=== PATIENT | female | born 1940 | race Caucasian/White ===

== ENCOUNTER 2021-07-31 11:22 | Inpatient (IN) | payer MEDICARE, OTHER ==
[~2021-07-31] VITALS: Ht 162.5 cm; Wt 41.3 kg
[~2021-07-31 11:22] MED LIST: ARTIFICIAL TEAR1514 OP; COLESTIPOL HYDRO1 GM PO; Coumadin5 MG PO; DIVALPROEX SOD250 MG PO; EXTENDED PHENY200 MG PO; GABAPENTIN100 M2 PO; LEVETIRACETAM500 MG PO; LEVOTHYROXINE100 MC1 PO; LISINOPRIL5 MG PO; MIRTAZAPINE15 M2 PO; OLANZAPINE10 MG PO; PROAIR HFA8.5 GM INH; VITAMIN C500 M8 PO; ZAFIRLUKAST20 M2 PO; ZOFRAN4 MG PO
[2021-07-31] MEDS ORDERED: PROTONIX IV40 MG IV (12:19)
[2021-07-31] MEDS ORDERED: DULCOLAX5 M1 PO (12:20)
[2021-07-31] MEDS ORDERED: MOM30 M1 PO (12:21)
[2021-07-31 12:35] VITALS: BP 92/48
[2021-07-31 20:00] VITALS: BP 100/50
[2021-08-01 06:25] LABS: ALKALINE PHOSPHATASE 98 U/L (45-117); BUN 14 mg/dl (7-24); CHLORIDE 98 mmol/L (98-107); CHOLESTEROL 183 mg/dL (<200); CREATININE 0.46 mg/dL (0.55-1.02); LDL CHOLESTEROL 75 mg/dL (9-159); POTASSIUM 5.2 mmol/L (3.5-5.1); SGOT/AST 22 IU/L (3-35); SGPT/ALT 26 U/L (12-78); SODIUM 133 mmol/L (136-145); TOTAL PROTEIN 6.9 gm/dL (6.4-8.2); TRIGLYCERIDES 77 mg/dl (<150)
[2021-08-01 06:35] LABS: PHENYTOIN (DILANTIN) 0.7 ug/ml (10-20)
[2021-08-01 07:39] LABS: VITAMIN D, 25-HYDROXY 32.5 ng/mL (30-100)
[2021-08-01 07:44] VITALS: BP 103/43
[2021-08-01 08:25] LABS: BASO % 0.3 % (0.0-1.0); EOS # 0.2 10*3/uL (0.0-0.4); EOS % 1.5 % (1.0-4.0); HEMATOCRIT 33.7 % (37.0-47.0); LYMPH # 2.3 10*3/uL (1.3-4.4); LYMPH % 21.1 % (27.0-41.0); MEAN CELL VOLUME 69.8 fl (81.0-99.0); MEAN CORPUSCULAR HGB 19.5 pg (27.0-31.0); MEAN CORPUSCULAR HGB CONC 27.9 g/dl (33.0-37.0); MEAN PLATELET VOLUME 8.3 fl (9.6-12.3); MONO # 0.9 10*3/uL (0.1-1.0); MONO % 8.6 % (3.0-9.0); NEUT # 7.5 10*3/uL (2.3-7.9); NEUT % 68.1 % (47.0-73.0); PLATELET COUNT AUTOMATED 304 10*3/uL (130-400); RED BLOOD COUNT 4.83 10*6/uL (4.10-5.10)
[2021-08-01 08:33] LABS: INTERNATIONAL NORM RATIO 1.6 (2.0-3.5)
[2021-08-01 20:00] VITALS: BP 114/37
[2021-08-02 06:52] LABS: BASO % 0.3 % (0.0-1.0); EOS # 0.2 10*3/uL (0.0-0.4); HEMATOCRIT 29.1 % (37.0-47.0); LYMPH # 1.8 10*3/uL (1.3-4.4); LYMPH % 18.5 % (27.0-41.0); MEAN CELL VOLUME 71.9 fl (81.0-99.0); MEAN CORPUSCULAR HGB CONC 27.8 g/dl (33.0-37.0); MEAN PLATELET VOLUME 8.4 fl (9.6-12.3); MONO # 0.8 10*3/uL (0.1-1.0); MONO % 8.1 % (3.0-9.0); NEUT # 6.7 10*3/uL (2.3-7.9); NEUT % 70.8 % (47.0-73.0); PLATELET COUNT AUTOMATED 259 10*3/uL (130-400); RED BLOOD COUNT 4.05 10*6/uL (4.10-5.10); RED CELL DISTRI WIDTH 23.2 % (0-14.5); WHITE BLOOD COUNT 9.5 10*3/uL (4.8-10.8)
[2021-08-02 07:01] LABS: INTERNATIONAL NORM RATIO 1.9 (2.0-3.5)
[2021-08-02 07:11] LABS: BUN 14 mg/dl (7-24); CHLORIDE 100 mmol/L (98-107); CREATININE 0.35 mg/dL (0.55-1.02); POTASSIUM 4.9 mmol/L (3.5-5.1); SODIUM 135 mmol/L (136-145)
[2021-08-02 08:21] VITALS: BP 115/55
[2021-08-02 20:00] VITALS: BP 120/59
[2021-08-03 06:00] LABS: BASO % 0.3 % (0.0-1.0); EOS # 0.2 10*3/uL (0.0-0.4); EOS % 2.2 % (1.0-4.0); HEMATOCRIT 31.5 % (37.0-47.0); LYMPH # 1.7 10*3/uL (1.3-4.4); LYMPH % 16.3 % (27.0-41.0); MEAN CELL VOLUME 71.3 fl (81.0-99.0); MEAN CORPUSCULAR HGB 19.7 pg (27.0-31.0); MEAN CORPUSCULAR HGB CONC 27.6 g/dl (33.0-37.0); MEAN PLATELET VOLUME 8.7 fl (9.6-12.3); MONO # 0.8 10*3/uL (0.1-1.0); NEUT # 7.6 10*3/uL (2.3-7.9); NEUT % 72.8 % (47.0-73.0); PLATELET COUNT AUTOMATED 291 10*3/uL (130-400); RED BLOOD COUNT 4.42 10*6/uL (4.10-5.10); RED CELL DISTRI WIDTH 23.3 % (0-14.5); WHITE BLOOD COUNT 10.4 10*3/uL (4.8-10.8)
[2021-08-03 06:10] LABS: BUN 12 mg/dl (7-24); CHLORIDE 99 mmol/L (98-107); CREATININE 0.51 mg/dL (0.55-1.02); POTASSIUM 5.1 mmol/L (3.5-5.1); SODIUM 135 mmol/L (136-145)
[2021-08-03 06:17] LABS: INTERNATIONAL NORM RATIO 1.7 (2.0-3.5)
[2021-08-03 07:53] VITALS: BP 111/54
[2021-08-03 09:10] LABS: ABG BASE EXCESS 8.3 mmol/L (-2.0-2.0); ARTERIAL BLOOD GAS PH 7.424 (7.35-7.45); ARTERIAL BLOOD GAS PO2 91.5 (80-90)
[2021-08-03 16:17] LABS: BASO % 0.2 % (0.0-1.0); EOS # 0.1 10*3/uL (0.0-0.4); EOS % 0.6 % (1.0-4.0); HEMATOCRIT 29.7 % (37.0-47.0); LYMPH # 1.7 10*3/uL (1.3-4.4); LYMPH % 13.5 % (27.0-41.0); MEAN CELL VOLUME 70.7 fl (81.0-99.0); MEAN CORPUSCULAR HGB 20.5 pg (27.0-31.0); MEAN PLATELET VOLUME 8.6 fl (9.6-12.3); MONO # 0.9 10*3/uL (0.1-1.0); MONO % 7.4 % (3.0-9.0); NEUT # 9.8 10*3/uL (2.3-7.9); NEUT % 77.8 % (47.0-73.0); PLATELET COUNT AUTOMATED 257 10*3/uL (130-400); RED CELL DISTRI WIDTH 23.5 % (0-14.5); WHITE BLOOD COUNT 12.6 10*3/uL (4.8-10.8)
[2021-08-03 16:43] LABS: BUN 17 mg/dl (7-24); CHLORIDE 99 mmol/L (98-107); CREATININE 0.47 mg/dL (0.55-1.02); POTASSIUM 4.8 mmol/L (3.5-5.1); SODIUM 134 mmol/L (136-145)
[2021-08-03 20:00] VITALS: BP 123/60
[2021-08-04 08:00] VITALS: BP 120/56
[2021-08-04 09:50] LABS: BILIRUBIN Negative (Negative); BLOOD Negative (Negative); CLARITY Clear (Clear); COLOR Yellow (Yellow); GLUCOSE Negative (Negative); KETONE Negative (Negative); LEUKO ESTERASE 3+ (Negative); NITRITE Negative (Negative); SPECIFIC GRAVITY 1.015 (1.001-1.030); UROBILINOGEN 0.2 E.U./dl (0.0-1.0)
[2021-08-04 10:08] LABS: WBC 31-40 wbc/hpf (0-5)
[2021-08-04 10:09] LABS: BACTERIA 1+
[2021-08-04 20:00] VITALS: BP 112/54
[2021-08-05 07:44] VITALS: BP 112/52
[2021-08-05 20:00] VITALS: BP 100/66
[2021-08-06 06:24] LABS: INTERNATIONAL NORM RATIO 1.3 (2.0-3.5)
[2021-08-06 08:00] VITALS: BP 128/61
[2021-08-06 20:00] VITALS: BP 130/78; BP 164/80
[2021-08-07 06:07] LABS: ALKALINE PHOSPHATASE 75 U/L (45-117); BUN 14 mg/dl (7-24); CHLORIDE 102 mmol/L (98-107); CREATININE 0.43 mg/dL (0.55-1.02); POTASSIUM 5.1 mmol/L (3.5-5.1); SGOT/AST 18 IU/L (3-35); SGPT/ALT 18 U/L (12-78); SODIUM 137 mmol/L (136-145); TOTAL PROTEIN 6.5 gm/dL (6.4-8.2)
[2021-08-07 06:13] LABS: BASO % 0.3 % (0.0-1.0); EOS # 0.2 10*3/uL (0.0-0.4); EOS % 2.2 % (1.0-4.0); HEMATOCRIT 29.9 % (37.0-47.0); LYMPH # 1.6 10*3/uL (1.3-4.4); LYMPH % 17.3 % (27.0-41.0); MEAN CELL VOLUME 71.7 fl (81.0-99.0); MEAN CORPUSCULAR HGB 20.1 pg (27.0-31.0); MEAN CORPUSCULAR HGB CONC 28.1 g/dl (33.0-37.0); MEAN PLATELET VOLUME 8.9 fl (9.6-12.3); MONO # 0.7 10*3/uL (0.1-1.0); MONO % 7.3 % (3.0-9.0); NEUT # 6.6 10*3/uL (2.3-7.9); NEUT % 72.6 % (47.0-73.0); PLATELET COUNT AUTOMATED 291 10*3/uL (130-400); RED BLOOD COUNT 4.17 10*6/uL (4.10-5.10); RED CELL DISTRI WIDTH 25.1 % (0-14.5); WHITE BLOOD COUNT 9.1 10*3/uL (4.8-10.8)
[2021-08-07 07:33] VITALS: BP 130/52
[2021-08-07] MEDS ORDERED: SLOW RELEASE I159 MG PO (12:17)
[2021-08-07] MEDS ORDERED: VITAMIN D350 MC2 PO (12:17)
[2021-08-07] MEDS ORDERED: ROZEREM8 MG PO (12:20)
[2021-08-07] MEDS ORDERED: ESKALITH,LITHI300 MG PO (12:21)
[2021-08-07] MEDS ORDERED: INVEGA6 MG PO (12:21)
== END 2021-08-07 12:54 | disposition short-term general hospital (02) | DRG 885 ==
LOC: 3N 11:22
PROVIDERS: Counselor Professional; Family Medicine; Hospitalist; Internal Medicine; Student in an Organized Health Care Education/Training Program; ADMIT Psychiatry & Neurology Psychiatry; ATTEND Psychiatry & Neurology Psychiatry
DX: F25.0 Schizoaffective disorder, bipolar type (principal); E43 Unspecified severe protein-calorie malnutrition; J96.11 Chronic respiratory failure with hypoxia; E87.1 Hypo-osmolality and hyponatremia; Z68.1 Body mass index [BMI] 19.9 or less, adult; G31.84 Mild cognitive impairment of uncertain or unknown etiology; G62.9 Polyneuropathy, unspecified; E87.5 Hyperkalemia; J44.9 Chronic obstructive pulmonary disease, unspecified; I10 Essential (primary) hypertension; E03.9 Hypothyroidism, unspecified; R56.9 Unspecified convulsions; Z88.2 Allergy status to sulfonamides; Z88.8 Allergy status to other drugs, medicaments and biological substances; Z88.1 Allergy status to other antibiotic agents; Z88.5 Allergy status to narcotic agent; Z91.041 Radiographic dye allergy status

== ENCOUNTER 2021-08-07 13:01 | Inpatient (IN) | payer MEDICARE, OTHER ==
[~2021-08-07] VITALS: Ht 157.5 cm; Wt 43.7 kg
[~2021-08-07 13:01] MED LIST changes: +DULCOLAX5 M1 PO; +ESKALITH,LITHI300 MG PO; +INVEGA6 MG PO; +MOM30 M1 PO; +PROTONIX IV40 MG IV; +ROZEREM8 MG PO; +SLOW RELEASE I159 MG PO; +VITAMIN D350 MC2 PO
[2021-08-07 13:04] VITALS: BP 116/60
[2021-08-07 13:21] VITALS: BP 119/50
[2021-08-07 16:01] VITALS: BP 122/54
[2021-08-07 20:00] VITALS: BP 121/50
[2021-08-08] VITALS: BP 118/54
[2021-08-08 06:07] LABS: INTERNATIONAL NORM RATIO 1.3 (2.0-3.5)
[2021-08-08 06:19] LABS: BASO # 0.1 10*3/uL (0.0-0.1); BASO % 0.7 % (0.0-1.0); EOS # 0.3 10*3/uL (0.0-0.4); EOS % 3.5 % (1.0-4.0); HEMATOCRIT 30.4 % (37.0-47.0); LYMPH # 2.2 10*3/uL (1.3-4.4); LYMPH % 26.9 % (27.0-41.0); MEAN CELL VOLUME 71.2 fl (81.0-99.0); MEAN CORPUSCULAR HGB 20.1 pg (27.0-31.0); MEAN CORPUSCULAR HGB CONC 28.3 g/dl (33.0-37.0); MEAN PLATELET VOLUME 9.2 fl (9.6-12.3); MONO # 0.5 10*3/uL (0.1-1.0); MONO % 5.5 % (3.0-9.0); NEUT # 5.2 10*3/uL (2.3-7.9); NEUT % 63.2 % (47.0-73.0); PLATELET COUNT AUTOMATED 248 10*3/uL (130-400); RED BLOOD COUNT 4.27 10*6/uL (4.10-5.10); RED CELL DISTRI WIDTH 25.9 % (0-14.5); WHITE BLOOD COUNT 8.2 10*3/uL (4.8-10.8)
[2021-08-08 06:23] LABS: ALKALINE PHOSPHATASE 77 U/L (45-117); BUN 16 mg/dl (7-24); CHLORIDE 102 mmol/L (98-107); CREATININE 0.41 mg/dL (0.55-1.02); POTASSIUM 4.6 mmol/L (3.5-5.1); SGOT/AST 11 IU/L (3-35); SGPT/ALT 18 U/L (12-78); SODIUM 136 mmol/L (136-145); TOTAL PROTEIN 6.8 gm/dL (6.4-8.2)
[2021-08-08 08:00] VITALS: BP 140/56
[2021-08-08 12:00] VITALS: BP 117/54
[2021-08-08 16:00] VITALS: BP 142/46
[2021-08-08 19:26] LABS: BILIRUBIN Negative (Negative); BLOOD 1+ (Negative); CLARITY Turbid (Clear); COLOR Yellow (Yellow); GLUCOSE Negative (Negative); KETONE Negative (Negative); LEUKO ESTERASE 3+ (Negative); NITRITE Negative (Negative); UROBILINOGEN 0.2 E.U./dl (0.0-1.0)
[2021-08-08 19:46] LABS: WBC TNTC wbc/hpf (0-5)
[2021-08-08 20:00] VITALS: BP 99/50
[2021-08-09] VITALS: BP 105/52
[2021-08-09 06:43] LABS: INTERNATIONAL NORM RATIO 1.1 (2.0-3.5)
[2021-08-09 08:00] VITALS: BP 114/42
[2021-08-09 12:00] VITALS: BP 142/46
[2021-08-09 15:42] VITALS: BP 140/43
[2021-08-09 20:00] VITALS: BP 120/53
[2021-08-10] VITALS: BP 141/55
[2021-08-10 05:32] LABS: BUN 14 mg/dl (7-24); CHLORIDE 101 mmol/L (98-107); CREATININE 0.42 mg/dL (0.55-1.02); POTASSIUM 4.6 mmol/L (3.5-5.1); SODIUM 137 mmol/L (136-145)
[2021-08-10 06:29] LABS: BASO % 0.5 % (0.0-1.0); EOS # 0.2 10*3/uL (0.0-0.4); EOS % 2.4 % (1.0-4.0); HEMATOCRIT 31.1 % (37.0-47.0); LYMPH # 2.5 10*3/uL (1.3-4.4); MEAN CELL VOLUME 70.4 fl (81.0-99.0); MEAN CORPUSCULAR HGB 20.1 pg (27.0-31.0); MEAN CORPUSCULAR HGB CONC 28.6 g/dl (33.0-37.0); MONO # 0.5 10*3/uL (0.1-1.0); MONO % 6.7 % (3.0-9.0); NEUT # 4.8 10*3/uL (2.3-7.9); NEUT % 59.2 % (47.0-73.0); PLATELET COUNT AUTOMATED 301 10*3/uL (130-400); RED BLOOD COUNT 4.42 10*6/uL (4.10-5.10)
[2021-08-10 06:41] LABS: INTERNATIONAL NORM RATIO 1.1 (2.0-3.5)
[2021-08-10 08:00] VITALS: BP 182/62
[2021-08-10 12:00] VITALS: BP 112/75
[2021-08-10 15:59] VITALS: BP 124/52
[2021-08-10 20:00] VITALS: BP 96/52
[2021-08-11] VITALS: BP 104/49
[2021-08-11 08:00] VITALS: BP 147/53
[2021-08-11 10:05] LABS: BUN 15 mg/dl (7-24); CHLORIDE 103 mmol/L (98-107); CREATININE 0.48 mg/dL (0.55-1.02); POTASSIUM 4.5 mmol/L (3.5-5.1); SODIUM 138 mmol/L (136-145)
[2021-08-11 12:00] VITALS: BP 119/63
[2021-08-11 16:00] VITALS: BP 153/61
[2021-08-11] MEDS ORDERED: VANCO 1 GR1 GM/250 M IV (17:40)
[2021-08-11] MEDS ORDERED: CEFTRIAXONE1 G1 IV (17:40)
[2021-08-11 20:00] VITALS: BP 139/67
[2021-08-12 08:00] VITALS: BP 138/50
[2021-08-12 12:00] VITALS: BP 168/69
== END 2021-08-12 15:39 | DRG 689 ==
LOC: 4E 13:01
PROVIDERS: Internal Medicine; Internal Medicine Infectious Disease; Registered Nurse; ADMIT Internal Medicine; ATTEND Internal Medicine
DX: N39.0 Urinary tract infection, site not specified (principal); E43 Unspecified severe protein-calorie malnutrition; J96.11 Chronic respiratory failure with hypoxia; Z68.1 Body mass index [BMI] 19.9 or less, adult; G62.9 Polyneuropathy, unspecified; F25.9 Schizoaffective disorder, unspecified; F31.9 Bipolar disorder, unspecified; G31.84 Mild cognitive impairment of uncertain or unknown etiology; Z20.822 Contact with and (suspected) exposure to COVID-19; R56.9 Unspecified convulsions; I10 Essential (primary) hypertension; J44.9 Chronic obstructive pulmonary disease, unspecified; Z79.51 Long term (current) use of inhaled steroids; Z51.81 Encounter for therapeutic drug level monitoring; Z79.01 Long term (current) use of anticoagulants; Z88.5 Allergy status to narcotic agent; Z88.1 Allergy status to other antibiotic agents; Z91.041 Radiographic dye allergy status; Z88.8 Allergy status to other drugs, medicaments and biological substances

== ENCOUNTER 2021-08-12 11:20 | Inpatient (IN) | payer MEDICARE, OTHER ==
[~2021-08-12] VITALS: Ht 157.4 cm; Wt 41.6 kg
[~2021-08-12 11:20] MED LIST changes: +CEFTRIAXONE1 G1 IV; +VANCO 1 GR1 GM/250 M IV
[2021-08-12 16:31] VITALS: BP 150/84
[2021-08-12 20:00] VITALS: BP 120/57
[2021-08-13 06:01] LABS: BASO % 0.4 % (0.0-1.0); EOS # 0.1 10*3/uL (0.0-0.4); EOS % 1.9 % (1.0-4.0); LYMPH # 2.1 10*3/uL (1.3-4.4); LYMPH % 27.2 % (27.0-41.0); MEAN CELL VOLUME 72.1 fl (81.0-99.0); MEAN CORPUSCULAR HGB 20.9 pg (27.0-31.0); MEAN CORPUSCULAR HGB CONC 29.1 g/dl (33.0-37.0); MEAN PLATELET VOLUME 8.3 fl (9.6-12.3); MONO # 0.6 10*3/uL (0.1-1.0); MONO % 7.4 % (3.0-9.0); NEUT # 4.7 10*3/uL (2.3-7.9); NEUT % 62.7 % (47.0-73.0); PLATELET COUNT AUTOMATED 346 10*3/uL (130-400); RED BLOOD COUNT 4.44 10*6/uL (4.10-5.10); WHITE BLOOD COUNT 7.6 10*3/uL (4.8-10.8)
[2021-08-13 06:19] LABS: ALKALINE PHOSPHATASE 77 U/L (45-117); BUN 11 mg/dl (7-24); CHLORIDE 103 mmol/L (98-107); CHOLESTEROL 160 mg/dL (<200); CREATININE 0.47 mg/dL (0.55-1.02); LDL CHOLESTEROL 62 mg/dL (9-159); POTASSIUM 4.8 mmol/L (3.5-5.1); SGOT/AST 17 IU/L (3-35); SODIUM 135 mmol/L (136-145); TOTAL PROTEIN 6.9 gm/dL (6.4-8.2); TRIGLYCERIDES 47 mg/dl (<150)
[2021-08-13 06:28] LABS: SGPT/ALT 22 U/L (12-78)
[2021-08-13 06:44] LABS: INTERNATIONAL NORM RATIO 1.1 (2.0-3.5)
[2021-08-13 07:39] VITALS: BP 142/58
[2021-08-13 08:27] LABS: VITAMIN D, 25-HYDROXY 44.4 ng/mL (30-100)
[2021-08-13 20:00] VITALS: BP 135/67
[2021-08-14 07:41] VITALS: BP 130/62
[2021-08-14 09:26] LABS: INTERNATIONAL NORM RATIO 1.1 (2.0-3.5)
[2021-08-14 20:00] VITALS: BP 119/67
[2021-08-15 08:05] VITALS: BP 98/68
[2021-08-15 20:00] VITALS: BP 148/47
[2021-08-16 06:26] LABS: INTERNATIONAL NORM RATIO 1.3 (2.0-3.5)
[2021-08-16 08:00] VITALS: BP 104/74
[2021-08-16 09:02] VITALS: BP 124/75
[2021-08-16 20:00] VITALS: BP 156/57
[2021-08-17 08:00] VITALS: BP 155/53
[2021-08-17 19:43] VITALS: BP 113/54
[2021-08-18 07:47] VITALS: BP 122/67
[2021-08-18 20:00] VITALS: BP 109/47
[2021-08-19 06:31] LABS: ALKALINE PHOSPHATASE 68 U/L (45-117); BUN 19 mg/dl (7-24); CHLORIDE 103 mmol/L (98-107); CREATININE 0.51 mg/dL (0.55-1.02); POTASSIUM 5.3 mmol/L (3.5-5.1); SGOT/AST 14 IU/L (3-35); SGPT/ALT 21 U/L (12-78); SODIUM 137 mmol/L (136-145); TOTAL PROTEIN 6.9 gm/dL (6.4-8.2)
[2021-08-19 06:44] LABS: HEMATOCRIT 31.9 % (37.0-47.0); MEAN CELL VOLUME 76.1 fl (81.0-99.0); MEAN CORPUSCULAR HGB CONC 28.8 g/dl (33.0-37.0); MEAN PLATELET VOLUME 9.1 fl (9.6-12.3); PLATELET COUNT AUTOMATED 292 10*3/uL (130-400); RED BLOOD COUNT 4.19 10*6/uL (4.10-5.10); WHITE BLOOD COUNT 7.8 10*3/uL (4.8-10.8)
[2021-08-19 06:47] LABS: MANUAL DIFF REFLEX YES
[2021-08-19 07:15] VITALS: BP 126/60
[2021-08-19 07:38] LABS: TOTAL CELLS COUNTED 100 #CELLS
[2021-08-19 07:41] LABS: PLATELET SUFFICIENCY NORMAL (NORMAL)
[2021-08-19 07:42] LABS: MICROCYTOSIS SLIGHT; OVALOCYTES FEW; ROULEAUX SLIGHT
[2021-08-19 20:00] VITALS: BP 136/68
[2021-08-20 07:28] VITALS: BP 122/71
[2021-08-20 20:00] VITALS: BP 123/53
[2021-08-21 06:41] LABS: ALKALINE PHOSPHATASE 65 U/L (45-117); BUN 15 mg/dl (7-24); CHLORIDE 103 mmol/L (98-107); CREATININE 0.48 mg/dL (0.55-1.02); POTASSIUM 5.1 mmol/L (3.5-5.1); SGOT/AST 14 IU/L (3-35); SGPT/ALT 18 U/L (12-78); SODIUM 136 mmol/L (136-145); TOTAL PROTEIN 6.6 gm/dL (6.4-8.2)
[2021-08-21 08:00] VITALS: BP 120/53
[2021-08-21 20:00] VITALS: BP 108/57
[2021-08-22 08:04] VITALS: BP 112/46
[2021-08-22 20:05] VITALS: BP 133/60
[2021-08-23 07:37] VITALS: BP 111/41
[2021-08-23] MEDS ORDERED: RISPERIDONE0.5 MG PO (09:14)
[2021-08-23] MEDS ORDERED: RISPERIDONE1 MG PO (09:14)
[2021-08-23] MEDS ORDERED: VITAMIN D350 MC2 PO (09:14)
[2021-08-23] MEDS ORDERED: LITHIUM CARB300 MG PO (09:14)
[2021-08-23] MEDS ORDERED: BENZTROPINE ME0.5 MG PO (09:14)
== END 2021-08-23 12:18 | DRG 885 ==
LOC: 3N 11:20
PROVIDERS: Counselor Professional; Hospitalist; Internal Medicine; Nurse Practitioner Women's Health; ADMIT Psychiatry & Neurology Psychiatry; ATTEND Psychiatry & Neurology Psychiatry
DX: F25.0 Schizoaffective disorder, bipolar type (principal); E43 Unspecified severe protein-calorie malnutrition; J96.10 Chronic respiratory failure, unspecified whether with hypoxia or hypercapnia; N39.0 Urinary tract infection, site not specified; Z68.1 Body mass index [BMI] 19.9 or less, adult; F25.9 Schizoaffective disorder, unspecified; F41.9 Anxiety disorder, unspecified; F31.9 Bipolar disorder, unspecified; E86.0 Dehydration; G62.9 Polyneuropathy, unspecified; Z79.899 Other long term (current) drug therapy; Z88.8 Allergy status to other drugs, medicaments and biological substances; Z79.01 Long term (current) use of anticoagulants